=== PATIENT | male | born 1960 | race Caucasian/White ===

== ENCOUNTER 2017-02-14 05:17 | Day surgery (SDC) | payer BC, OTHER ==
[2017-02-13 14:39] VITALS: BMI 42.2
[2017-02-14] MEDS ORDERED: oxyCODONE HCL 5 MG TABLET PO PRN (14:34)
[2017-02-14] MEDS ORDERED: ONDANSETRON 4 MG/2 ML VIAL IVPUSH PRN (14:34)
[2017-02-14] MEDS ORDERED: LACTATED RINGERS SOLUTION 1,000 ML IV SCH (14:45)
[2017-02-14] MEDS ORDERED: ceFAZolin SODIUM 1 GM VIAL IVPB ONE (15:10)
--- NOTE | 2017-02-14 16:04 | OP ---
Operative Note - Note: Operative Date: 02/14/17 Pre-Operative Diagnosis: Hematuria Operation: cysto fulguration TUVP and bladder biosy Findings: Severe inf changes a with bulbous edema of the bladder, obs uropathy. Entire prostatic urethra showed inf changes and was bleeding. Post-Operative Diagnosis: Same as Pre-op Anesthesia: Spinal Drains & Tubes with Location: [address] Operative Report Dictated: Yes
[2017-02-14] MEDS ORDERED: ePHEDrine SULFATE 50 MG/1 ML AMPULE ONE (16:14)
[2017-02-14] MEDS ORDERED: SODIUM CHLORIDE 0.9% P/F 10 ML VIAL IJ ONE (16:15)
[2017-02-14 17:57] VITALS: TEMP 98.3
[2017-02-14 19:02] VITALS: BP 153/91; PULSE 67
--- NOTE | 2017-02-15 11:17 | OP ---
DATE OF OPERATION: 02/14/2017 SURGEON: Sylvia Queen MD ANESTHESIA: Spinal. PREOPERATIVE DIAGNOSIS: Gross hematuria and obstructive uropathy. POSTOPERATIVE DIAGNOSIS: Gross hematuria and obstructive uropathy, possible bladder lesions. PROCEDURE: Cystoscopy, transurethral vaporization of the prostate, and biopsy of bladder neck. FINDINGS: Urethra normal. Bladder neck shows some obstructive uropathy with evidence of enlarged prostate length. Severe inflammatory changes noted throughout the prostatic urethra. Multiple bulbous edema and are noted. Both ureteral orifices normally located with clear efflux. Two or three diverticulum noted in the trigone area. The anterior trigone was found to be filled with severe tortuous blood vessels and areas of inflammation. DESCRIPTION OF PROCEDURE: Patient in lithotomy position under anesthesia was prepped and draped in the usual manner. Using 26 Black resectoscope, resection of the bladder neck and the prostate carried out using plasma button. At the end, a good channel was noted. Also noted was severe bulbous edema which was fulgurated. Multiple bleeding points were electrocoagulated. There were areas of changes in the mucocele of the bladder. Biopsy was taken. The tissues were so friable they bleed, so a good biopsy could not be taken. So, it was decided to fulgurate the area and repeat the biopsy in 6 weeks. We will repeat the cystoscopy in 6 weeks to be followed up. SYLVIA QUEEN M.D. [id number]
--- NOTE | 2017-02-16 16:54 | PATH ---
Surgical Pathology Report Patient Name: [facility]. Rec. #: [id number] /Age/Gender: 1960 (Age: 56) / M Account: [id number] Location: [facility] Taken: 02/14/2017 Received: 02/15/2017 Reported: 02/16/2017 Physicians: Sylvia Queen M.D. Specimen(s) Received BLADDER NECK BIOPSY Clinical History BPH, hemorrhagic cystitis Final Diagnosis BLADDER NECK, BIOPSY: BENIGN POLYPOID CYSTITIS. Electronically Signed Angelic Kaur M.D. Gross Description Received in formalin, labeled "bladder neck biopsy" are 2 cruz, irregular portions of soft tissue measuring 0.2 and 0.5 cm. in greatest dimension. The specimens are submitted in toto in one cassette. 02/15/201702/15/2017
== END 2017-02-14 19:04 | disposition home or self-care (01) ==
LOC: JASU-SURG 05:17
PROVIDERS: ATTEND Urology
PROC: 0VT08ZZ Resection of Prostate, Via Natural or Artificial Opening Endoscopic (ICD-10-PCS; principal; 2017-02-14 14:00)
PROC: 0TBC8ZX Excision of Bladder Neck, Via Natural or Artificial Opening Endoscopic, Diagnostic (ICD-10-PCS; 2017-02-14 14:00)
DX: N40.1 Benign prostatic hyperplasia with lower urinary tract symptoms (principal); N30.81 Other cystitis with hematuria; N13.8 Other obstructive and reflux uropathy
CPT/HCPCS: 88305-TC; 94760

== ENCOUNTER 2017-02-15 06:57 | Emergency (ER) | payer BC, OTHER ==
[2017-02-15 07:19] VITALS: BP 166/99; PULSE 97; TEMP 98.2; BMI 42.6
--- NOTE | 2017-02-15 07:27 | PDOC ---
History of Present Illness - General History Source: Patient Exam Limitations: No Limitations - History of Present Illness Initial Comments: 02/15/17 08:32 The patient is a 56-year-old male, with a significant past medical history of HTN, Asthma, cholelithiasis, who presents to the ED s/p cysto/TUVP. The patient is now complaining of urinary retention and bleeding from catheter today. Pt is experiencing pain and has been unable to pass urine through the catheter. He reports draining his catheter before going to bed last night. Pt takes 25 mg of aspirin daily. Denies any nausea, vomiting, diarrhea. Denies having any other symptoms. Urologist: Dr. Queen <Dinora Guillen - Last Filed: 02/15/17 08:37> <Cinthia Lehman - Last Filed: 02/15/17 12:22> - General Chief Complaint: Urinary Catheter Problem Stated Complaint: CATHATER NOT WORKING Time Seen by Provider: 02/15/17 07:19 Past History <Dinora Guillen - Last Filed: 02/15/17 08:37> - Past Medical History Anemia: No Asthma: Yes Cancer: No Cardiac Disorders: No CVA: No COPD: No CHF: No Dementia: No Diabetes: No GI Disorders: No Disorders: No HTN: Yes Hypercholesterolemia: Yes Liver Disease: No Seizures: No Thyroid Disease: No Other medical history: enlarged prostate - Surgical History Cholecystectomy: Yes - Suicide/Smoking/Psychosocial Hx Smoking History: Never smoked Have you smoked in the past 12 months: No Hx Alcohol Use: No Drug/Substance Use Hx: No Substance Use Type: None Hx Substance Use Treatment: No <Cinthia Lehman - Last Filed: 02/15/17 12:22> - Past Medical History Allergies/Adverse Reactions: Allergies Allergy/AdvReac Type Severity Reaction Status Date / Time No Known Drug Allergies Allergy Unknown Verified 02/15/17 07:13 CONDIMENT Allergy Intermediate Swelling Uncoded 02/15/17 07:13 SPICY FOOD Allergy Uncoded 02/15/17 07:13 Home Medications: Ambulatory Orders Losartan/Hydrochlorothiazide [Losartan-Hctz 50-12.5 mg Tab] 1 each PO DAILY Aspirin [ASA -] 325 mg PO DAILY 02/13/17 Metoprolol Succinate [Toprol Xl] 50 mg PO BID 02/13/17 Review of Systems - Review of Systems Able to Perform ROS?: Yes Comments:: 02/15/17 08:33 GENERAL/CONSTITUTIONAL: No fever or chills. No weakness. HEAD, EYES, EARS, NOSE AND THROAT: No change in vision. No ear pain or discharge. No sore throat. CARDIOVASCULAR: No chest pain or shortness of breath. RESPIRATORY: No cough, wheezing, or hemoptysis. GASTROINTESTINAL: (+)suprapubic pain. No nausea, vomiting, diarrhea or constipation. GENITOURINARY: (+)urinary retention. No dysuria, frequency. MUSCULOSKELETAL: No joint or muscle swelling or pain. No neck or back pain. SKIN: No rash NEUROLOGIC: No headache, vertigo, loss of consciousness, or change in strength/ sensation. ENDOCRINE: No increased thirst. No abnormal weight change. HEMATOLOGIC/LYMPHATIC: No anemia, easy bleeding, or history of blood clots. ALLERGIC/IMMUNOLOGIC: No hives or skin allergy. <Dinora Guillen - Last Filed: 02/15/17 08:37> *Physical Exam - Vital Signs Last Vital Signs Temp Pulse Resp BP Pulse Ox 98.2 F 97 H 20 166/99 98 02/15/17 07:09 02/15/17 07:09 02/15/17 07:09 02/15/17 07:09 02/15/17 07:09 - Physical Exam Comments: 02/15/17 08:34 GENERAL: Awake, alert, and fully oriented, in no acute distress HEAD: No signs of trauma EYES: PERRLA, EOMI, sclera anicteric, conjunctiva clear ENT: Auricles normal inspection, hearing grossly normal, nares patent, oropharynx clear without exudates. Moist mucosa NECK: Normal ROM, supple, no lymphadenopathy, JVD, or masses LUNGS: Breath sounds equal, clear to auscultation bilaterally. No wheezes, and no crackles HEART: Regular rate and rhythm, normal S1 and S2, no murmurs, rubs or gallops ABDOMEN: (+)Bladder is distended. Soft, nontender, normoactive bowel sounds. No guarding, no rebound. No masses GENITOURINARY: (+)laci blood noted (30 cc in stewart bag), small amount of blood coming out of the meatus of the penis. EXTREMITIES: Normal range of motion, no edema. No clubbing or cyanosis. No cords, erythema, or tenderness NEUROLOGICAL: Cranial nerves II through XII grossly intact. Normal speech, normal gait SKIN: Warm, Dry, normal turgor, no rashes or lesions noted <Dinora Guillen - Last Filed: 02/15/17 08:37> - Vital Signs Last Vital Signs Temp Pulse Resp BP Pulse Ox 98.2 F 97 H 20 166/99 98 02/15/17 07:09 02/15/17 07:09 02/15/17 07:09 02/15/17 07:09 02/15/17 07:09 <Cinthia Lehman - Last Filed: 02/15/17 12:22> ED Treatment Course - LABORATORY CBC & Chemistry Diagram: 02/15/17 08:40 02/15/17 08:40 <Cinthia Lehman - Last Filed: 02/15/17 12:22> Medical Decision Making - Medical Decision Making 02/15/17 07:37 Dr. Mcdaniel was paged and notified via phone service. <Dinora Guillen - Last Filed: 02/15/17 08:37> - Medical Decision Making 02/15/17 07:34 a/p: 56yo male s/p cysto/TUVP yesterday with Urology now with urinary retention and catheter bleeding -will check labs -ivf hydration -pain control -call placed to Dr. Queen to discuss catheter care since placed after prostate and bladder bx 02/15/17 09:10 Dr. Horner at the bedside - bag was clamped incorrectly. now with urine output that is bloody - requests CBI and will come down and evaluate again. Pt feeling much better after releasing Urine. with cbi - running - pink tinged, no clots, clearing from dark red blood 02/15/17 10:[address] Nice who will be back at noon to re-eval: continue CBI until then 02/15/17 12:20 pt has been re-eval by urology - stable for d/c to home d/c home with leg bag <Cinthia Lehman - Last Filed: 02/15/17 12:22> *DC/Admit/Observation/Transfer - Attestations Scribe Attestion: 02/15/17 08:36 Documentation prepared by Dinora Guillen, acting as medical records tech for Cinthia Lehman DO, MD. <Dinora Guillen - Last Filed: 02/15/17 08:37> - Discharge Dispostion Admit: No - Attestations Physician Attestion: 02/15/17 12:22 I, Dr. Cinthia Lehman DO, attest that this document has been prepared under my direction and personally reviewed by me in its entirety. I further attest, that it accurately reflects all work, treatment, procedures and medical decision -making performed by me. <Cinthia Lehman - Last Filed: 02/15/17 12:22> Diagnosis at time of Disposition: S/P TURP, Hematuria, Acute urinary retention - Discharge Dispostion Disposition: HOME Condition at time of disposition: Stable - Referrals Referrals: Alejandro Jolly MD [Primary Care Provider] - Sylvia Queen MD [Staff Physician] - - Patient Instructions Printed Discharge Instructions: DI for Transurethral Resection of the Prostate , DI for Hematuria Additional Instructions: Please follow up with urology as scheduled. Please make a follow up appointment with your PMD. Please return to the ED with any further concerns. Please take all meds as prescribed. - Post Discharge Activity
[2017-02-15] MEDS ORDERED: morphine CARPU-JECT 2 MG/1 ML DISP.SYRIN IVPUSH ONE (07:36)
[2017-02-15 08:53] LABS: BASO % 0.5 % (0-2.0); EOS % 0.1 % (0-4.5); MCHC 32.9 g/dl (32.0-35.9); MEAN CELL VOLUME 88.2 fl (80-96); MEAN PLT VOLUME 9.4 fl (7.5-11.1); NEUT % 80.6 % (42.8-82.8); RDW 14.7 % (11.9-15.9); WHITE BLOOD COUNT 13.5 K/mm3 (4.0-10.0)
[2017-02-15 09:04] LABS: INR 1.04 (0.82-1.09); PROTHROMBIN TIME (PATIENT) 11.8 SEC (9.98-11.88)
[2017-02-15 09:07] LABS: ACTIVATED PTT 29.1 SECONDS (26.9-34.4)
[2017-02-15 09:26] LABS: ALBUMIN 3.5 g/dl (3.4-5.0); ANION GAP 10 (8-16); CALCIUM 8.6 mg/dL (8.5-10.1); CO2 24 mmol/L (21-32); GLUCOSE,RANDOM 145 mg/dL (74-106); SGOT/AST 39 U/L (15-37); SGPT/ALT 54 U/L (12-78)
[2017-02-15 09:27] LABS: ALK PHOS 93 U/L (45-117); BILIRUBIN,TOTAL 0.8 mg/dL (0.2-1.0); TOT PROT 6.7 g/dl (6.4-8.2)
[2017-02-15 12:07] LABS: PLATELET COMMENTS PRESENT
== END 2017-02-15 12:51 | disposition home or self-care (01) ==
LOC: JER 06:57
DX: Z98.890 Other specified postprocedural states (principal); R33.9 Retention of urine, unspecified; R31.9 Hematuria, unspecified; I10 Essential (primary) hypertension; J45.909 Unspecified asthma, uncomplicated
CPT/HCPCS: 36415; 80053; 85025; 85610; 85730; 99282-25

== ENCOUNTER 2017-02-15 22:55 | Inpatient (IN) | payer BC, OTHER ==
[2017-02-15] MEDS ORDERED: ACETAMINOPHEN 325 MG TABLET (FP) PO ONE (23:49)
[2017-02-16] MEDS ORDERED: ACETAMINOPHEN 325 MG TABLET (FP) ONE
[2017-02-16 00:44] LABS: BASO % 0.8 % (0-2.0); EOS % 1.5 % (0-4.5); HEMATOCRIT 41.3 % (35.4-49); HEMOGLOBIN 13.9 GM/dL (11.7-16.9); LYMPH % 11.7 % (8-40); MCH 29.5 pg (25.7-33.7); MCHC 33.6 g/dl (32.0-35.9); MEAN CELL VOLUME 87.7 fl (80-96); MEAN PLT VOLUME 10.2 fl (7.5-11.1); MONO % 6.4 % (3.8-10.2); NEUT % 79.6 % (42.8-82.8); PLATELET COUNT 158 K/MM3 (134-434); RBC 4.71 M/mm3 (4.00-5.60); RDW 14.9 % (11.9-15.9); WHITE BLOOD COUNT 10.6 K/mm3 (4.0-10.0)
[2017-02-16 00:56] LABS: INR 1.07 (0.82-1.09); PROTHROMBIN TIME (PATIENT) 12.1 SEC (9.98-11.88)
[2017-02-16 00:59] LABS: ACTIVATED PTT 28.3 SECONDS (26.9-34.4)
[2017-02-16 01:06] LABS: ALBUMIN 3.4 g/dl (3.4-5.0); ALK PHOS 88 U/L (45-117); ANION GAP 11 (8-16); BILIRUBIN,TOTAL 0.7 mg/dL (0.2-1.0); BLOOD UREA NITROGEN 17 mg/dL (7-18); CALCIUM 8.3 mg/dL (8.5-10.1); CHLORIDE 105 mmol/L (98-107); CO2 24 mmol/L (21-32); GLUCOSE,RANDOM 152 mg/dL (74-106); POTASSIUM 3.7 mmol/L (3.5-5.1); SGOT/AST 35 U/L (15-37); SGPT/ALT 51 U/L (12-78); SODIUM 140 mmol/L (136-145); TOT PROT 6.6 g/dl (6.4-8.2)
--- NOTE | 2017-02-16 01:34 | PDOC ---
History of Present Illness - General Chief Complaint: Pain Stated Complaint: PAIN Time Seen by Provider: 02/15/17 23:41 History Source: Patient - History of Present Illness Initial Comments: 02/16/17 01:35 The patient is a 56-year-old male, with a significant past medical history of HTN, Asthma, cholelithiasis, who presented to the ED s/p cysto/TUVP this morning with blockage and bleeding from the urinary catheter. The patient is now back with the complaint that his urinary catheter is full of laci blood. No clogging reported. Past History - Past Medical History Allergies/Adverse Reactions: Allergies Allergy/AdvReac Type Severity Reaction Status Date / Time No Known Drug Allergies Allergy Unknown Verified 02/15/17 07:13 CONDIMENT Allergy Intermediate Swelling Uncoded 02/15/17 07:13 SPICY FOOD Allergy Uncoded 02/15/17 07:13 Home Medications: Ambulatory Orders Losartan/Hydrochlorothiazide [Losartan-Hctz 50-12.5 mg Tab] 1 each PO DAILY Aspirin [ASA -] 325 mg PO DAILY 02/13/17 Metoprolol Succinate [Toprol Xl] 50 mg PO BID 02/13/17 Anemia: No Asthma: Yes Cancer: No Cardiac Disorders: No CVA: No COPD: No CHF: No Dementia: No Diabetes: No GI Disorders: No Disorders: No HTN: Yes Hypercholesterolemia: Yes Liver Disease: No Seizures: No Thyroid Disease: No - Surgical History Cholecystectomy: Yes - Suicide/Smoking/Psychosocial Hx Smoking History: Never smoked Have you smoked in the past 12 months: No Information on smoking cessation initiated: No Hx Alcohol Use: No Drug/Substance Use Hx: No Substance Use Type: None Hx Substance Use Treatment: No Review of Systems - Review of Systems Able to Perform ROS?: Yes Constitutional: No: Symptoms Reported HEENTM: No: Symptoms Reported Respiratory: No: Symptoms reported Cardiac (ROS): No: Symptoms Reported ABD/GI: No: Symptoms Reported : Yes: See HPI, Hematuria Musculoskeletal: No: Symptoms Reported Integumentary: No: Symptoms Reported Neurological: No: Symptoms reported All Other Systems: Reviewed and Negative *Physical Exam - Vital Signs Last Vital Signs Temp Pulse Resp BP Pulse Ox 97.9 F 82 19 158/102 97 02/15/17 23:16 02/15/17 23:16 02/15/17 23:16 02/15/17 23:16 02/15/17 23:16 - Physical Exam General Appearance: Yes: Nourished, Appropriately Dressed. No: Apparent Distress HEENT: positive: EOMI, ASTRID, Normal ENT Inspection Neck: positive: Trachea midline. negative: Tender Respiratory/Chest: positive: Lungs Clear, Normal Breath Sounds. negative: Chest Tender Cardiovascular: positive: Regular Rhythm, Regular Rate, S1, S2 Gastrointestinal/Abdominal: positive: Normal Bowel Sounds, Flat, Soft. negative : Tender Integumentary: positive: Normal Color, Dry, Warm Neurologic: positive: batter scaler II-XII NML intact, Fully Oriented, Alert, Normal Mood/ Affect ED Treatment Course - LABORATORY CBC & Chemistry Diagram: 02/16/17 00:37 02/16/17 00:37 - ADDITIONAL ORDERS Additional order review: Laboratory Results 02/16/17 02/16/17 00:37 00:37 PT with INR 12.10 H INR 1.07 PTT (Actin FS) 28.3 Sodium 140 Potassium 3.7 Chloride 105 Carbon Dioxide 24 Anion Gap 11 BUN 17 Creatinine 1.0 Creat Clearance w eGFR > 60 Random Glucose 152 H Calcium 8.3 L Total Bilirubin 0.7 AST 35 ALT 51 Alkaline Phosphatase 88 Total Protein 6.6 Albumin 3.4 02/16/17 00:37 RBC 4.71 MCV 87.7 MCHC 33.6 RDW 14.9 MPV 10.2 Neutrophils % 79.6 Lymphocytes % 11.7 Monocytes % 6.4 Eosinophils % 1.5 D Basophils % 0.8 - Medications Given in the ED: ED Medications Discontinued Medications Generic Name Dose Route Start Last Admin Trade Name Freq PRN Reason Stop Dose Admin Acetaminophen 650 mg 02/15/17 23:49 02/15/17 23:59 Tylenol - PO 02/15/17 23:50 650 mg ONCE ONE Administration Medical Decision Making - Medical Decision Making 02/16/17 01:44 The patient is a 56-year-old male, with a significant past medical history of HTN, Asthma, cholelithiasis,s/p cysto/TUVP presenting on second visit today for hematuria. Patient lab drawn, to be admitted to hospitalist. Spoke to Dr. Mcdaniel who recommended to flush the catheter and admit to med-surg where he will follow up with the patient tomorrow. 02/16/17 02:14 Spoke to hospitalist Chinyere Rosales who will see the patient. 02/16/17 03:03 *DC/Admit/Observation/Transfer Diagnosis at time of Disposition: Hematuria, Complication of Toml[place] catheter - Discharge Dispostion Admit: Yes - Referrals Referrals: Duane Mcdaniel MD [Staff Physician] - - Patient Instructions - Post Discharge Activity
--- NOTE | 2017-02-16 02:09 | PDOC ---
Attending Attestation - Resident Resident Name: Chace Wallace - ED Attending Attestation I have performed the following: I have examined & evaluated the patient, The case was reviewed & discussed with the resident, I agree w/resident's findings & plan, Exceptions are as noted - Physicial Exam PE: 02/16/17 02:06 *Physical Exam General Appearance: Yes: Appropriately Dressed. No: Apparent Distress, Intoxicated HEENT: positive: EOMI, ASTRID, Normal ENT Inspection, Normal Voice, TMs Normal, Pharynx Normal. negative: Pale Conjunctivae, Photophobia, Scleral Icterus (R), Scleral Icterus (L) Neck: positive: Trachea midline, Normal Thyroid, Supple. negative: Tender, Rigid, Carotid bruit, Stridor, Lymphadenopathy (R), Lymphadenopathy (L), Thyromegaly Respiratory/Chest: positive: Lungs Clear, Normal Breath Sounds. negative: Chest Tender, Respiratory Distress, Accessory Muscle Use, Labored Respiration, RES, Crackles, Rales, Rhonchi, Stridor, Wheezing, Dullness Cardiovascular: positive: Regular Rhythm, Regular Rate, S1, S2. negative: Edema , JVD, Murmur, Bradycardia, Tachycardia Vascular Pulses: Dorsalis-Pedis (R): 2+, Doralis-Pedis (L): 2+ Gastrointestinal/Abdominal: positive: Normal Bowel Sounds, Flat, Soft. negative : Tender, Organomegaly, Pulsatile Mass, Increased Bowel Sounds, Decreased BS, Distended, Guarding, Rebound, Hernia, Hepatomegaly, Spleenomegaly Lymphatic: negative: Adenopathy, Tenderness Musculoskeletal: positive: Normal Inspection. negative: CVA Tenderness, Decreased Range of Motion pt with stewart catheter in place. stewart bag showing blood in urine Extremity: positive: Normal Capillary Refill, Normal Inspection, Normal Range of Motion, Pelvis Stable. negative: Tender, Pedal Edema, Swelling, Erythema Integumentary: positive: Normal Color, Dry, Warm. negative: Cyanotic, Erythema , Jaundice, Rash Neurologic: positive: remote sensing technologist II-XII NML intact, Fully Oriented, Alert, Normal Mood/ Affect, Motor Strength 5/5. negative: EOM Palsy, Facial Droop, Sensory Deficit <Chris Rivas - Last Filed: 02/16/17 02:06> - HPI HPI: 02/16/17 02:12 The patient is a 56-year-old male, with a significant past medical history of HTN, Asthma, cholelithiasis, who returns to the ED s/p cysto/TUVP for continued bleeding from catheter after being discharged for clogged catheter earlier today. The patient reportedly takes 25 mg of aspirin daily. The patient also reports a spinning headache, but denies room spinning. Denies any nausea, vomiting, diarrhea. Denies having any other symptoms. Urologist: Dr. Queen - Medical Decision Making 02/16/17 02:12 Dr. Duane Mcdaniel, Urology on-call for Dr. Queen, was called and the patient' s case was discussed. Will admit to [facility] service when UA is resulted. <Charissa Campos - Last Filed: 02/16/17 02:13>
[2017-02-16 02:35] LABS: PH,URINE 6.5 (5.0-8.0); URINE APPEARANCE TURBID; URINE BILIRUBIN NEGATIVE (NEGATIVE); URINE BLOOD 3+ (NEGATIVE); URINE GLUCOSE (UA) NEGATIVE (NEGATIVE); URINE KETONE 1+ (NEGATIVE); URINE UROBILINOGEN 0.2 mg/dL (0.2-1.0)
[2017-02-16 02:37] LABS: URINE LEUK ESTERASE TRACE (NEGATIVE); URINE NITRITE POSITIVE (NEGATIVE); URINE PROTEIN 3+ (NEGATIVE)
[2017-02-16 02:38] LABS: URINE COLOR RED
[2017-02-16] MEDS ORDERED: morphine CARPU-JECT 4 MG/1 ML DISP.SYRIN IVPUSH ONE (03:57)
--- NOTE | 2017-02-16 04:57 | HP ---
CHIEF COMPLAINT: hematuria PCP: Bret HISTORY OF PRESENT ILLNESS: This is a 56 year old male with a significant past medical history of enlarged prostate who presented to the ED with hematuria in Stewart bag. Pt is s/p cystoscopy, bladder biopsy and TUVP on 02/14. He was d/c home with a stewart catheter in place. On 02/15 he noted no urine output in bag and abdominal discomfort. He presented to the ED. He was evaluated by urology in the ED and started on CBI which he tolerated and was DC home after irrigation. He again noted no urine output and thus presented to the ED for another visit late last night. He reports that when he got here he did have urine output but noted it to be very bloody. He reports he has been producing urine since he got here late last night. Upon exam his only complaint is a headache. ER course was notable for: (1) laci bloody urine in leg bag (2) Hgb 13.9 Recent Travel: lives in [place] and splits his time between here and there PAST MEDICAL HISTORY: HTN, asthma, enlarged prostate PAST SURGICAL HISTORY: cholecystectomy Social History: Smoking: pt denies Alcohol: occ beer Drugs: pt denies Family History: mother alive with OA, DM, HTN, CVA x 2, first at 76 father unknown history Allergies No Known Drug Allergies Allergy (Unknown, Verified 02/15/17 07:13) CONDIMENT Allergy (Intermediate, Uncoded 02/15/17 07:13) Swelling FACE SPICY FOOD Allergy (Uncoded 02/15/17 07:13) HOME MEDICATIONS: 3 Medication Instructions Recorded Losartan/Hydrochlorothiazide 1 each PO DAILY 07/14/15 [Losartan-Hctz 50-12.5 mg Tab] Aspirin [ASA -] 325 mg PO DAILY 02/13/17 Metoprolol Succinate [Toprol Xl] 50 mg PO BID 02/13/17 REVIEW OF SYSTEMS CONSTITUTIONAL: Absent: fever, chills, diaphoresis, generalized weakness, malaise, loss of appetite, weight change HEENT: Absent: rhinorrhea, nasal congestion, throat pain, throat swelling, difficulty swallowing, mouth swelling, ear pain, eye pain, visual changes CARDIOVASCULAR: Absent: chest pain, syncope, palpitations, irregular heart rate, lightheadedness , peripheral edema RESPIRATORY: Absent: cough, shortness of breath, dyspnea with exertion, orthopnea, wheezing, stridor, hemoptysis GASTROINTESTINAL: Absent: abdominal pain, abdominal distension, nausea, vomiting, diarrhea, constipation, melena, hematochezia GENITOURINARY: Present: hematuria Absent: dysuria, frequency, urgency, hesitancy, flank pain, genital pain MUSCULOSKELETAL: Absent: myalgia, arthralgia, joint swelling, back pain, neck pain SKIN: Absent: rash, itching, pallor HEMATOLOGIC/IMMUNOLOGIC: Absent: easy bleeding, easy bruising, lymphadenopathy, frequent infections ENDOCRINE: Absent: unexplained weight gain, unexplained weight loss, heat intolerance, cold intolerance NEUROLOGIC: Absent: headache, focal weakness or paresthesias, dizziness, unsteady gait, seizure, mental status changes, bladder or bowel incontinence PSYCHIATRIC: Absent: anxiety, depression, suicidal or homicidal ideation, hallucinations. PHYSICAL EXAMINATION Vital Signs - 24 hr 3 02/15/17 23:16 Temperature 97.9 F Pulse Rate 82 Respiratory 19 Rate Blood Pressure 158/102 O2 Sat by Pulse 97 Oximetry (%) GENERAL: Awake, alert, and fully oriented, in no acute distress. HEAD: Normal with no signs of trauma. EYES: Pupils equal, round and reactive to light, extraocular movements intact, sclera anicteric, conjunctiva clear. No lid lag. EARS, NOSE, THROAT: Ears normal, nares patent, oropharynx clear without exudates. Moist mucous membranes. NECK: Normal range of motion, supple without lymphadenopathy, JVD, or masses. LUNGS: Breath sounds equal, clear to auscultation bilaterally. No wheezes, and no crackles. No accessory muscle use. HEART: Regular rate and rhythm, normal S1 and S2 without murmur, rub or gallop. ABDOMEN: Soft, nontender, not distended, normoactive bowel sounds, no guarding, no rebound, no masses. No hepatomegaly or splenomegaly. leg bag noted with laci hematuria MUSCULOSKELETAL: Normal range of motion at all joints. No bony deformities or tenderness. No CVA tenderness. UPPER EXTREMITIES: 2+ pulses, warm, well-perfused. No cyanosis. No clubbing. No peripheral edema. LOWER EXTREMITIES: 2+ pulses, warm, well-perfused. No calf tenderness. No peripheral edema. NEUROLOGICAL: Cranial nerves II-XII intact. Normal speech. Normal gait. PSYCHIATRIC: Cooperative. Good eye contact. Appropriate mood and affect. SKIN: Warm, dry, normal turgor, no rashes or lesions noted, normal capillary refill. Laboratory Results - last 24 hr 3 02/16/17 02/16/17 02/16/17 00:37 00:37 00:37 WBC 10.6 H RBC 4.71 Hgb 13.9 Hct 41.3 MCV 87.7 MCH 29.5 MCHC 33.6 RDW 14.9 Plt Count 158 MPV 10.2 Neutrophils % 79.6 Lymphocytes % 11.7 Monocytes % 6.4 Eosinophils % 1.5 D Basophils % 0.8 PT with INR 12.10 H INR 1.07 PTT (Actin FS) 28.3 Sodium 140 Potassium 3.7 Chloride 105 Carbon Dioxide 24 Anion Gap 11 BUN 17 Creatinine 1.0 Creat Clearance w eGFR > 60 Random Glucose 152 H Calcium 8.3 L Total Bilirubin 0.7 AST 35 ALT 51 Alkaline Phosphatase 88 Total Protein 6.6 Albumin 3.4 Urine Color Urine Appearance Urine pH Ur Specific Carter Urine Protein Urine Glucose (UA) Urine Ketones Urine Blood Urine Nitrite Urine Bilirubin Urine Urobilinogen Urine WBC (Auto) Urine RBC (Auto) Blood Type Antibody Screen 3 Urine Color Red 02/16/17 02:00 Urine Appearance Turbid 02/16/17 02:00 Urine pH 6.5 (5.0-8.0) 02/16/17 02:00 Ur Specific Carter >= 1.030 (1.001-1.035) 02/16/17 02:00 Urine Protein 3+ (NEGATIVE) H D 02/16/17 02:00 Urine Glucose (UA) Negative (NEGATIVE) 02/16/17 02:00 Urine Ketones 1+ (NEGATIVE) H 02/16/17 02:00 Urine Blood 3+ (NEGATIVE) H 02/16/17 02:00 Urine Nitrite Positive (NEGATIVE) 02/16/17 02:00 Urine Bilirubin Negative (NEGATIVE) 02/16/17 02:00 ASSESSMENT/PLAN: 56yM with PMH HTN, asthma, enlarged prostate presented to the ED for the second time in less than 24h for hematuria and blocked stewart catheter. Hematuria s/p cystoscopy, bladder neck biopsy and TUVP - cont stewart - irrigate PRN - urology consult Hypertension - cont home medications DVT PPX - deferred as anticipated LOS less than 48h FEN - tolerating po - BMP alice - low sodium diet dispo: Pt currently requires inpatient observation for management of his emergent condition. Visit type - Emergency Visit Emergency Visit: Yes ED Registration Date: 02/15/17 Care time: The patient presented to the Emergency Department on the above date and was hospitalized for further evaluation of their emergent condition. - New Patient This patient is new to me today: Yes Date on this admission: 02/16/17 - Critical Care Critical Care patient: No
[2017-02-16] MEDS ORDERED: morphine CARPU-JECT 8 MG/1 ML DISP.SYRIN ONE (06:46)
[2017-02-16] MEDS: LOSARTAN POTASSIUM 50 MG TABLET (FP) PO SCH (09:24)
[2017-02-16] MEDS: HYDROCHLOROTHIAZIDE 12.5 MG CAPSULE (FP) PO SCH (09:24)
[2017-02-16] MEDS: METOPROLOL SUCCINATE 50 MG TAB.SR.24H (FP) PO SCH ×2 (09:25→21:26)
[2017-02-16] MEDS ORDERED: LOSARTAN 50MG/HCTZ 12.5MG 1 TAB (FP) PO SCH (10:00)
--- NOTE | 2017-02-16 12:43 | EKG ---
Test Reason : Blood Pressure : / mmHG Vent. Rate : 064 BPM Atrial Rate : 064 BPM P-R Int : 158 ms QRS Dur : 090 ms QT Int : 456 ms P-R-T Axes : 054 -20 032 degrees QTc Int : 470 ms NORMAL SINUS RHYTHM POSSIBLE LEFT ATRIAL ENLARGEMENT LEFT VENTRICULAR HYPERTROPHY ABNORMAL ECG WHEN COMPARED WITH ECG OF 15-JUL-2015 15:47, NO SIGNIFICANT CHANGE WAS FOUND Confirmed by ADITI PARRA MD ([id number]) on 02/16/2017 12:43:18 PM Referred By: Confirmed By:AIDTI PARRA MD
[2017-02-16] MEDS ORDERED: ONDANSETRON 4 MG/2 ML VIAL IVPUSH PRN (13:22)
[2017-02-16 16:27] VITALS: BMI 43.8
[2017-02-16] MEDS ORDERED: morphine SULFATE 4 MG/ML VIAL IVPUSH PRN (17:04)
[2017-02-16] MEDS: oxyCODONE HCL 5 MG TABLET PO PRN (18:27)
--- NOTE | 2017-02-16 22:42 | HOSP ---
Physical Examination Vital Signs: Vital Signs Temperature 98.3 F 02/16/17 21:23 Pulse Rate 66 02/16/17 18:00 Respiratory Rate 20 02/16/17 21:23 Blood Pressure 142/79 02/16/17 21:23 O2 Sat by Pulse Oximetry (%) 98 02/16/17 20:00 Labs: CBC, BMP 02/16/17 00:37 02/16/17 00:37 Hospitalist Encounter Assessment: called by RN who reports that pt was seen by urology Colette Mcdaniel who told the patient he needs CBI. But did not put the order in. Nurse unable to reach Dr. Mcdaniel. Tomlinson draining laci hematuria slowly. Will order CBI.
[2017-02-17] MEDS: oxyCODONE HCL 5 MG TABLET PO PRN ×4 (01:23→22:17)
[2017-02-17 09:00] LABS: BASO % 0.8 % (0-2.0); EOS % 7.3 % (0-4.5); HEMATOCRIT 41.2 % (35.4-49); HEMOGLOBIN 13.4 GM/dL (11.7-16.9); LYMPH % 18.2 % (8-40); MCH 28.7 pg (25.7-33.7); MCHC 32.6 g/dl (32.0-35.9); MEAN PLT VOLUME 9.9 fl (7.5-11.1); MONO % 9.3 % (3.8-10.2); NEUT % 64.4 % (42.8-82.8); RBC 4.69 M/mm3 (4.00-5.60); RDW 14.9 % (11.9-15.9); WHITE BLOOD COUNT 9.5 K/mm3 (4.0-10.0)
[2017-02-17 09:30] LABS: CHLORIDE 103 mmol/L (98-107); POTASSIUM 3.7 mmol/L (3.5-5.1); SODIUM 138 mmol/L (136-145)
[2017-02-17 09:36] LABS: ALBUMIN 3.2 g/dl (3.4-5.0); ALK PHOS 81 U/L (45-117); ANION GAP 6 (8-16); BILIRUBIN,TOTAL 0.9 mg/dL (0.2-1.0); BLOOD UREA NITROGEN 20 mg/dL (7-18); CALCIUM 8.6 mg/dL (8.5-10.1); CO2 29 mmol/L (21-32); CREATININE 0.9 mg/dL (0.7-1.3); GLUCOSE,RANDOM 106 mg/dL (74-106); SGOT/AST 60 U/L (15-37); SGPT/ALT 64 U/L (12-78); TOT PROT 6.1 g/dl (6.4-8.2)
--- NOTE | 2017-02-17 10:29 | PN ---
Progress Note (short form) - Note Progress Note: patient seen and examined in his room hematuria CBI in progress denies pain Vital Signs Temp 98.3 F 02/17/17 10:14 Pulse 68 02/17/17 10:14 Resp 18 02/17/17 10:14 BP 129/70 02/17/17 10:14 Pulse Ox 98 02/17/17 04:00 Intake & Output 02/16/17 02/16/17 02/17/17 11:59 23:59 11:59 Intake Total 3000 6000 Output Total 750 1900 8750 Balance -750 1100 -2750 Weight 323 lb Intake: CBI Intake 3000 6000 Output: Urine 450 1500 8750 Stewart 450 1500 8750 Void 0 Emesis 300 400 Other: Voiding Method Indwelling Catheter Indwelling Catheter Indwelling Catheter Height 6 ft Body Mass Index (BMI) 43.8 Weight Measurement Method Estimated by Patient Abnormal Lab Results 02/16/17 02/16/17 02/17/17 02:00 08:00 08:00 Absolute Neuts (auto) 6.1 L Absolute Lymphs (auto) 1.7 L Absolute Monos (auto) 0.9 L Eosinophils % 7.3 H D Anion Gap 6 L BUN 20 H AST 60 H D Total Protein 6.1 L Albumin 3.2 L Ur Leukocyte Esterase 3+ H Active Medications Docusate Sodium (Colace -) 100 mg PO BID PRN PRN Reason: CONSTIPATION Hydrochlorothiazide (Hctz -) 12.5 mg PO DAILY [facility] Last Admin: 02/16/17 09:24 Dose: 12.5 mg Losartan Potassium (Cozaar -) 50 mg PO DAILY [facility] Last Admin: 02/16/17 09:24 Dose: 50 mg Metoprolol Succinate (Toprol Xl -) 50 mg PO BID [facility] Last Admin: 02/16/17 21:26 Dose: 50 mg Ondansetron HCl (Zofran Injection) 4 mg IVPUSH Q6H PRN PRN Reason: NAUSEA Oxycodone HCl (Roxicodone -) 5 mg PO Q4H PRN PRN Reason: PAIN Last Admin: 02/17/17 01:23 Dose: 5 mg N-alert, oriented cvs-s1s2 lungs-clear abd- soft, nt, nd stewart, CBI le- NO EDEMA a/p Hematuria status post cysto and bladder neck biopsy and TUVP-02/14 HTN -Continue stewart, CBI -Urology evaluation -Irrigate Stewart PRN -BP controlled with meds DVT- ppx- early ambulation no chemical prophylaxis due to hematuria
[2017-02-17 12:02] LABS: PLATELET ESTIMATE ADEQUATE
[2017-02-17] MEDS: DOCUSATE SODIUM 100 MG CAPSULE (FP) PO PRN (12:33)
[2017-02-17] MEDS: HYDROCHLOROTHIAZIDE 12.5 MG CAPSULE (FP) PO SCH (12:33)
[2017-02-17] MEDS: METOPROLOL SUCCINATE 50 MG TAB.SR.24H (FP) PO SCH ×2 (12:33→22:13)
[2017-02-17] MEDS: LOSARTAN POTASSIUM 50 MG TABLET (FP) PO SCH (12:33)
--- NOTE | 2017-02-17 13:10 | CONS ---
DATE OF CONSULTATION: DATE OF DICTATION: 02/17/2017 HISTORY OF PRESENT ILLNESS: The patient is a 56-year-old male who recently underwent a cystoscopy and bladder biopsy at our office. He presented to the emergency room with gross hematuria and suprapubic pain. The patient is admitted for continuous bladder irrigation. He does have a history of benign prostatic hypertrophy with lower urinary tract symptoms. He also had persistent microscopic hematuria and underwent a cystoscopy on February 14, 2017. A hyperemic trigonal lesion was noticed. This was biopsied then a Tomlinson catheter was placed. The patient developed gross hematuria on February 15, 2017 in his drainage bag and presented to the emergency room. Attempts at irrigation were successful but the patient returned later that night with another bout of clots in his bag and therefore was admitted. PAST MEDICAL HISTORY: He does have a history of high blood pressure, asthma, and BPH. PAST SURGICAL HISTORY: He underwent a cholecystectomy. SOCIAL HISTORY: He denies smoking. He drinks socially. FAMILY HISTORY: He does have a family history of lung cancer, diabetes, hypertension, and cerebrovascular accidents. ALLERGIES: The patient denies any allergies. CURRENT MEDICATIONS: He is on losartan. and hydrochlorothiazide at home. He also takes a baby aspirin as well as metoprolol succinate. PHYSICAL EXAMINATION: General: Reveals a well-developed adult male who is mildly obese. Abdomen: Globus but soft. There is no CVA tenderness. Genitalia: Atraumatic. Tomlinson is patent. Urine is burgundy colored. There are no clots. Extremities: Show full range of motion. IMPRESSION: The patient presently is afebrile. His BUN and creatinine are 10 over 1. His urine is grossly bloody. His liver enzymes are normal and his latest blood results reveal a white count of 9.5, hemoglobin/hematocrit 13.4/41.2 and random glucose is 106. The patient has been afebrile for the past 48 hours. We will recommend a urologic clearance for discharge and follow in the office. [facility] [id number]
--- NOTE | 2017-02-17 17:36 | PN ---
Progress Note (short form) - Note Progress Note: patient seen and examined with [employer]PON MANIFEST CLERK Natasha this morning. Patient feels comfortable On CBI now--was passing clots last night Afebrile Biopsy--- report reviewed--cystitis I had also discussed last night with patient and patient's . Vital Signs Temp 98.3 F 02/17/17 16:30 Pulse 66 02/17/17 16:30 Resp 20 02/17/17 16:30 BP 137/88 02/17/17 16:30 Pulse Ox 98 02/17/17 12:00 Intake & Output 02/16/17 02/17/17 02/17/17 23:59 11:59 23:59 Intake Total 3000 6000 6360 Output Total 1900 8750 7000 Balance 1100 -2750 -640 Weight 323 lb Intake: Oral 360 CBI Intake 3000 6000 6000 Output: Urine 1500 8750 7000 Stewart 1500 8750 7000 Emesis 400 Other: Voiding Method Indwelling Catheter Indwelling Catheter Indwelling Catheter Bowel Movement No Height 6 ft Body Mass Index (BMI) 43.8 Weight Measurement Method Estimated by Patient Active Medications Docusate Sodium (Colace -) 100 mg PO BID PRN PRN Reason: CONSTIPATION Last Admin: 02/17/17 12:33 Dose: 100 mg Hydrochlorothiazide (Hctz -) 12.5 mg PO DAILY [facility] Last Admin: 02/17/17 12:33 Dose: 12.5 mg Losartan Potassium (Cozaar -) 50 mg PO DAILY [facility] Last Admin: 02/17/17 12:33 Dose: 50 mg Metoprolol Succinate (Toprol Xl -) 50 mg PO BID [facility] Last Admin: 02/17/17 12:33 Dose: 50 mg Ondansetron HCl (Zofran Injection) 4 mg IVPUSH Q6H PRN PRN Reason: NAUSEA Oxycodone HCl (Roxicodone -) 5 mg PO Q4H PRN PRN Reason: PAIN Last Admin: 02/17/17 12:48 Dose: 5 mg CBC, BMP 02/16/17 08:00 02/17/17 08:00 Physical N-alert, oriented cvs-s1s2 lungs-clear abd- soft, nt, nd stewart, CBI le- NO EDEMA a/p Hematuria status post cysto and bladder neck biopsy and TUVP-02/14 HTN -Continue stewart, CBI -Urology to follow -Irrigate Stewart PRN -BP controlled with meds DVT- ppx- early ambulation Will follow
[2017-02-17 19:30] LABS: HEMATOCRIT 41.2 % (35.4-49); HEMOGLOBIN 13.5 GM/dL (11.7-16.9); MCH 28.9 pg (25.7-33.7); MCHC 32.7 g/dl (32.0-35.9); MEAN CELL VOLUME 88.3 fl (80-96); MEAN PLT VOLUME 9.4 fl (7.5-11.1); RBC 4.67 M/mm3 (4.00-5.60); RDW 15.2 % (11.9-15.9); WHITE BLOOD COUNT 8.8 K/mm3 (4.0-10.0)
[2017-02-17] MEDS ORDERED: diphenhydrAMINE HCL 25 MG CAPSULE (FP) PO ONE ×2 (22:00)
[2017-02-17 22:59] LABS: PLATELET ESTIMATE DECREASED
[2017-02-18] MEDS ORDERED: PT OWN MED DRAWER 7, Y5N ONE (09:34)
[2017-02-18] MEDS: oxyCODONE HCL 5 MG TABLET PO PRN ×3 (09:35→23:45)
[2017-02-18] MEDS: LOSARTAN POTASSIUM 50 MG TABLET (FP) PO SCH (09:36)
[2017-02-18] MEDS: HYDROCHLOROTHIAZIDE 12.5 MG CAPSULE (FP) PO SCH (09:36)
[2017-02-18] MEDS: METOPROLOL SUCCINATE 50 MG TAB.SR.24H (FP) PO SCH ×2 (09:37→21:51)
--- NOTE | 2017-02-18 12:04 | PN ---
Progress Note (short form) - Note Progress Note: pt seen/examined comfortable. says urine vega at time . no fever/ chills. overall better Vital Signs Temp 98.1 F 02/18/17 08:35 Pulse 72 02/18/17 08:35 Resp 18 02/18/17 08:35 BP 170/91 02/18/17 08:35 Pulse Ox 98 02/18/17 04:00 Intake & Output 02/17/17 02/18/17 02/18/17 23:59 11:59 23:59 Intake Total 9360 350 Output Total 71499 3000 Balance -5940 -2650 Intake: Oral 360 350 CBI Intake 9000 Output: Urine 15273 3000 Stewart 78017 3000 Other: Voiding Method Indwelling Catheter Indwelling Catheter Bowel Movement No Active Medications Docusate Sodium (Colace -) 100 mg PO BID PRN PRN Reason: CONSTIPATION Last Admin: 02/17/17 12:33 Dose: 100 mg Hydrochlorothiazide (Hctz -) 12.5 mg PO DAILY [facility] Last Admin: 02/18/17 09:36 Dose: 12.5 mg Losartan Potassium (Cozaar -) 50 mg PO DAILY [facility] Last Admin: 02/18/17 09:36 Dose: 50 mg Metoprolol Succinate (Toprol Xl -) 50 mg PO BID [facility] Last Admin: 02/18/17 09:37 Dose: 50 mg Ondansetron HCl (Zofran Injection) 4 mg IVPUSH Q6H PRN PRN Reason: NAUSEA Oxycodone HCl (Roxicodone -) 5 mg PO Q4H PRN PRN Reason: PAIN Last Admin: 02/18/17 09:35 Dose: 5 mg CBC, BMP 02/17/17 19:05 02/17/17 08:00 Microbiology 02/16/17 02:00 Urine Culture - Final Urine - Urine Stewart NO GROWTH OBTAINED Physical Alert / awake. cvs-s1s2 lungs-clear abd- soft, nt, nd stewart, CBI no edema. a/p Hematuria status post cysto and bladder neck biopsy and TUVP-02/14 HTN -Continue stewart, CBI -Urology to follow -Irrigate Stewart PRN -BP - monitor DVT- ppx- early ambulation pathology - ve for malignancy will start on emperic abx Problem List - Problems (1) Complication of Stewart catheter Code(s): T83.9XXA - UNSP COMPLICATION OF GENITOURINARY PROSTH DEV/GRFT, INIT (2) Hematuria Code(s): R31.9 - HEMATURIA, UNSPECIFIED (3) Acute urinary retention Code(s): R33.8 - OTHER RETENTION OF URINE (4) BPH (benign prostatic hyperplasia) Code(s): N40.0 - BENIGN PROSTATIC HYPERPLASIA WITHOUT LOWER URINRY TRACT SYMP (5) HTN (hypertension) Code(s): I10 - ESSENTIAL (PRIMARY) HYPERTENSION (6) S/P TURP Code(s): Z90.79 - ACQUIRED ABSENCE OF OTHER GENITAL ORGAN(S)
[2017-02-18] MEDS: LEVOFLOXACIN 500 MG IVPB 500 MG/100 ML BAG IVPB SCH (13:26)
[2017-02-19] MEDS ORDERED: PT OWN MED DRAWER 7, Y5N ONE (09:49)
[2017-02-19] MEDS: LOSARTAN POTASSIUM 50 MG TABLET (FP) PO SCH (09:51)
[2017-02-19] MEDS: HYDROCHLOROTHIAZIDE 12.5 MG CAPSULE (FP) PO SCH (09:51)
[2017-02-19] MEDS: METOPROLOL SUCCINATE 50 MG TAB.SR.24H (FP) PO SCH ×2 (09:52→21:10)
[2017-02-19] MEDS: LEVOFLOXACIN 500 MG IVPB 500 MG/100 ML BAG IVPB SCH (09:52)
--- NOTE | 2017-02-19 12:15 | PN ---
Progress Note (short form) - Note Progress Note: pt seen/examined issues with cbi today---being flushed. Vital Signs Temp 97.9 F 02/19/17 06:00 Pulse 77 02/19/17 06:00 Resp 16 02/19/17 06:00 BP 153/85 02/19/17 06:00 Pulse Ox 98 02/18/17 20:00 Intake & Output 02/18/17 02/19/17 02/19/17 23:59 11:59 23:59 Intake Total 6500 8000 Output Total 5500 52717 1999 Balance 1000 -3300 -2000 Intake: IVPB 100 Oral 400 CBI Intake 6000 8000 Output: Urine 5500 08722 2000 Stewart 5500 35279 2000 Other: Voiding Method Indwelling Catheter Toilet Active Medications Docusate Sodium (Colace -) 100 mg PO BID PRN PRN Reason: CONSTIPATION Last Admin: 02/17/17 12:33 Dose: 100 mg Hydrochlorothiazide (Hctz -) 12.5 mg PO DAILY [facility] Last Admin: 02/19/17 09:51 Dose: 12.5 mg Levofloxacin (Levaquin 500 Mg Premixed Ivpb -) 500 mg in 100 mls @ 100 mls/hr IVPB DAILY [facility] Last Admin: 02/19/17 09:52 Dose: 100 mls/hr Losartan Potassium (Cozaar -) 50 mg PO DAILY [facility] Last Admin: 02/19/17 09:51 Dose: 50 mg Metoprolol Succinate (Toprol Xl -) 50 mg PO BID [facility] Last Admin: 02/19/17 09:52 Dose: 50 mg Ondansetron HCl (Zofran Injection) 4 mg IVPUSH Q6H PRN PRN Reason: NAUSEA Oxycodone HCl (Roxicodone -) 5 mg PO Q4H PRN PRN Reason: PAIN Last Admin: 02/18/17 23:45 Dose: 5 mg Physical Alert / awake.-- in discomfort cvs-s1s2 lungs-clear abd- soft, stewart, CBI no edema. a/p Hematuria status post cysto and bladder neck biopsy and TUVP-02/14 HTN -CBI Issues -Urology called -- awaiting call -- - abx - f/u labs also been ordered - pending abx will follow Problem List - Problems (1) Complication of Stewart catheter Code(s): T83.9XXA - UNSP COMPLICATION OF GENITOURINARY PROSTH DEV/GRFT, INIT (2) Hematuria Code(s): R31.9 - HEMATURIA, UNSPECIFIED (3) Acute urinary retention Code(s): R33.8 - OTHER RETENTION OF URINE (4) BPH (benign prostatic hyperplasia) Code(s): N40.0 - BENIGN PROSTATIC HYPERPLASIA WITHOUT LOWER URINRY TRACT SYMP (5) HTN (hypertension) Code(s): I10 - ESSENTIAL (PRIMARY) HYPERTENSION (6) S/P TURP Code(s): Z90.79 - ACQUIRED ABSENCE OF OTHER GENITAL ORGAN(S)
[2017-02-19 12:28] LABS: BASO % 0.6 % (0-2.0); EOS % 3.9 % (0-4.5); HEMATOCRIT 43.1 % (35.4-49); HEMOGLOBIN 13.9 GM/dL (11.7-16.9); LYMPH % 18.6 % (8-40); MCH 28.1 pg (25.7-33.7); MCHC 32.1 g/dl (32.0-35.9); MEAN CELL VOLUME 87.6 fl (80-96); MEAN PLT VOLUME 9.6 fl (7.5-11.1); MONO % 10.5 % (3.8-10.2); NEUT % 66.4 % (42.8-82.8); PLATELET COUNT 171 K/MM3 (134-434); RBC 4.92 M/mm3 (4.00-5.60); RDW 14.8 % (11.9-15.9); WHITE BLOOD COUNT 13.1 K/mm3 (4.0-10.0)
[2017-02-19 12:52] LABS: ALBUMIN 3.4 g/dl (3.4-5.0); ALK PHOS 93 U/L (45-117); ANION GAP 10 (8-16); BILIRUBIN,TOTAL 0.6 mg/dL (0.2-1.0); BLOOD UREA NITROGEN 15 mg/dL (7-18); CALCIUM 9.1 mg/dL (8.5-10.1); CHLORIDE 102 mmol/L (98-107); CO2 27 mmol/L (21-32); GLUCOSE,RANDOM 96 mg/dL (74-106); POTASSIUM 3.9 mmol/L (3.5-5.1); SGOT/AST 49 U/L (15-37); SGPT/ALT 73 U/L (12-78); SODIUM 139 mmol/L (136-145); TOT PROT 6.5 g/dl (6.4-8.2)
[2017-02-19] MEDS: DOCUSATE SODIUM 100 MG CAPSULE (FP) PO PRN (14:16)
--- NOTE | 2017-02-19 16:04 | PN ---
Progress Note (short form) - Note Progress Note: 56M s/p cysto w bx last week. presents w gross hematuria, pt was examined monday afternoon, Stewart was aptent and urine was clear. as per nurses, pt developed gross hematuria mon pm and monday all day and develops bouts of clot retention. presently pt with supra-pubic pain, stewart irrigated vigorously w normal saline (approx 100cc of cltos removed). presently stewart patent and clear urine. Stewart stabilized to leg w abdiaziz catheter jones. CBI running slowly. output is clear and pt encouraged to increase PO fluids. willl give ditropan xl 10mg po daily for bladder spasms.
[2017-02-19] MEDS: oxyCODONE HCL 5 MG TABLET PO PRN (21:10)
[2017-02-19] MEDS: OXYBUTYNIN CHLORIDE 5 MG TABLET PO SCH (21:10)
[2017-02-20] MEDS: oxyCODONE HCL 5 MG TABLET PO PRN ×2 (03:56→22:19)
[2017-02-20] MEDS: OXYBUTYNIN CHLORIDE 5 MG TABLET PO SCH ×3 (06:41→21:00)
[2017-02-20] MEDS: LEVOFLOXACIN 500 MG IVPB 500 MG/100 ML BAG IVPB SCH (10:41)
[2017-02-20] MEDS: LOSARTAN POTASSIUM 50 MG TABLET (FP) PO SCH (10:42)
[2017-02-20] MEDS: METOPROLOL SUCCINATE 50 MG TAB.SR.24H (FP) PO SCH ×2 (10:42→21:00)
[2017-02-20] MEDS: HYDROCHLOROTHIAZIDE 12.5 MG CAPSULE (FP) PO SCH (10:42)
--- NOTE | 2017-02-20 11:25 | PN ---
Progress Note (short form) - Note Progress Note: pt seen/examined urology f/u noted flushed cbi again last night and today. passed clots again this morning pt comfortable. urine - bloody denies cp/ sob. denies abd pain Vital Signs Temp 98.7 F 02/20/17 05:00 Pulse 58 L 02/20/17 05:00 Resp 20 02/20/17 05:00 BP 156/82 02/20/17 05:00 Pulse Ox 94 L 02/20/17 04:00 Intake & Output 02/19/17 02/19/17 02/20/17 11:59 23:59 11:59 Intake Total 8000 63207 59368 Output Total 29205 62341 9700 Balance -3300 2200 300 Intake: Oral 800 CBI Intake 8000 67316 29700 Output: Urine 64174 04577 9700 Stewart 87737 60789 9700 Other: Voiding Method Toilet Indwelling Catheter Indwelling Catheter Bowel Movement Yes No Active Medications Docusate Sodium (Colace -) 100 mg PO BID PRN PRN Reason: CONSTIPATION Last Admin: 02/19/17 14:16 Dose: 100 mg Hydrochlorothiazide (Hctz -) 12.5 mg PO DAILY [facility] Last Admin: 02/20/17 10:42 Dose: 12.5 mg Levofloxacin (Levaquin 500 Mg Premixed Ivpb -) 500 mg in 100 mls @ 100 mls/hr IVPB DAILY [facility] Last Admin: 02/20/17 10:41 Dose: 100 mls/hr Losartan Potassium (Cozaar -) 50 mg PO DAILY [facility] Last Admin: 02/20/17 10:42 Dose: 50 mg Metoprolol Succinate (Toprol Xl -) 50 mg PO BID [facility] Last Admin: 02/20/17 10:42 Dose: 50 mg Ondansetron HCl (Zofran Injection) 4 mg IVPUSH Q6H PRN PRN Reason: NAUSEA Oxybutynin Chloride (Ditropan -) 5 mg PO TID [facility] Last Admin: 02/20/17 06:41 Dose: 5 mg Oxycodone HCl (Roxicodone -) 5 mg PO Q4H PRN PRN Reason: PAIN Last Admin: 02/20/17 03:56 Dose: 5 mg CBC, BMP 02/19/17 12:20 02/19/17 12:20 Physical Alert / awake.-- comfortable. lungs-clear abd- soft, stewart, CBI no edema. a/p Hematuria status post cysto and bladder neck biopsy and TUVP-02/14 HTN -CBI - continue -Urology on case - abx - f/u labs will follow Problem List - Problems (1) Complication of Stewart catheter Code(s): T83.9XXA - UNSP COMPLICATION OF GENITOURINARY PROSTH DEV/GRFT, INIT (2) Hematuria Code(s): R31.9 - HEMATURIA, UNSPECIFIED (3) Acute urinary retention Code(s): R33.8 - OTHER RETENTION OF URINE (4) BPH (benign prostatic hyperplasia) Code(s): N40.0 - BENIGN PROSTATIC HYPERPLASIA WITHOUT LOWER URINRY TRACT SYMP (5) HTN (hypertension) Code(s): I10 - ESSENTIAL (PRIMARY) HYPERTENSION (6) S/P TURP Code(s): Z90.79 - ACQUIRED ABSENCE OF OTHER GENITAL ORGAN(S)
[2017-02-21] MEDS: oxyCODONE HCL 5 MG TABLET PO PRN ×4 (03:29→22:52)
[2017-02-21] MEDS: OXYBUTYNIN CHLORIDE 5 MG TABLET PO SCH ×3 (06:24→21:23)
[2017-02-21 08:24] LABS: HEMATOCRIT 37.1 % (35.4-49); MCH 28.4 pg (25.7-33.7); MCHC 32.3 g/dl (32.0-35.9); MEAN CELL VOLUME 88.1 fl (80-96); MEAN PLT VOLUME 8.6 fl (7.5-11.1); RBC 4.21 M/mm3 (4.00-5.60); RDW 14.7 % (11.9-15.9)
[2017-02-21 08:41] LABS: ALBUMIN 2.9 g/dl (3.4-5.0); ANION GAP 9 (8-16); BLOOD UREA NITROGEN 15 mg/dL (7-18); CALCIUM 8.2 mg/dL (8.5-10.1); CHLORIDE 105 mmol/L (98-107); CO2 27 mmol/L (21-32); GLUCOSE,RANDOM 105 mg/dL (74-106); POTASSIUM 3.8 mmol/L (3.5-5.1); SODIUM 141 mmol/L (136-145)
[2017-02-21 08:45] LABS: ALK PHOS 83 U/L (45-117); BILIRUBIN,TOTAL 0.7 mg/dL (0.2-1.0); CREATININE 0.9 mg/dL (0.7-1.3); SGOT/AST 33 U/L (15-37); SGPT/ALT 52 U/L (12-78); TOT PROT 5.8 g/dl (6.4-8.2)
[2017-02-21] MEDS: LEVOFLOXACIN 500 MG IVPB 500 MG/100 ML BAG IVPB SCH (09:13)
[2017-02-21] MEDS: METOPROLOL SUCCINATE 50 MG TAB.SR.24H (FP) PO SCH ×2 (09:13→21:23)
[2017-02-21] MEDS: HYDROCHLOROTHIAZIDE 12.5 MG CAPSULE (FP) PO SCH (09:13)
[2017-02-21] MEDS: LOSARTAN POTASSIUM 50 MG TABLET (FP) PO SCH (09:13)
--- NOTE | 2017-02-21 09:36 | PN ---
Progress Note (short form) - Note Progress Note: comfortable no pain. continue to pass clots Vital Signs Temp 98.1 F 02/21/17 05:00 Pulse 58 L 02/21/17 05:00 Resp 18 02/21/17 05:00 BP 136/72 02/21/17 05:00 Pulse Ox 98 02/20/17 20:00 Intake & Output 02/20/17 02/20/17 02/21/17 11:59 23:59 11:59 Intake Total 80386 4630 0 Output Total 09749 10588 66004 Balance 380 -32949 -08652 Intake: IV 0 saline lock 0 IVPB 100 0 Oral 380 630 CBI Intake 69792 4000 Output: Urine 10818 32872 94315 Stewart 02648 97080 13594 Void 0 Other: Voiding Method Indwelling Catheter Indwelling Catheter Bowel Movement No Yes # Bowel Movements 1 1 Active Medications Docusate Sodium (Colace -) 100 mg PO BID PRN PRN Reason: CONSTIPATION Last Admin: 02/19/17 14:16 Dose: 100 mg Hydrochlorothiazide (Hctz -) 12.5 mg PO DAILY [facility] Last Admin: 02/21/17 09:13 Dose: 12.5 mg Levofloxacin (Levaquin 500 Mg Premixed Ivpb -) 500 mg in 100 mls @ 100 mls/hr IVPB DAILY [facility] Last Admin: 02/21/17 09:13 Dose: 100 mls/hr Losartan Potassium (Cozaar -) 50 mg PO DAILY [facility] Last Admin: 02/21/17 09:13 Dose: 50 mg Metoprolol Succinate (Toprol Xl -) 50 mg PO BID [facility] Last Admin: 02/21/17 09:13 Dose: 50 mg Ondansetron HCl (Zofran Injection) 4 mg IVPUSH Q6H PRN PRN Reason: NAUSEA Oxybutynin Chloride (Ditropan -) 5 mg PO TID [facility] Last Admin: 02/21/17 06:24 Dose: 5 mg Oxycodone HCl (Roxicodone -) 5 mg PO Q4H PRN PRN Reason: PAIN Last Admin: 02/21/17 03:29 Dose: 5 mg CBC, BMP 02/21/17 06:35 02/21/17 06:35 Physical Alert / awake.-- comfortable. lungs-clear abd- soft, stewart, CBI no edema. a/p Hematuria status post cysto and bladder neck biopsy and TUVP-02/14 HTN -CBI - continue -Urology on case - abx -discussed with Dr. huber also today will follow Problem List - Problems (1) Complication of Stewart catheter Code(s): T83.9XXA - UNSP COMPLICATION OF GENITOURINARY PROSTH DEV/GRFT, INIT (2) Hematuria Code(s): R31.9 - HEMATURIA, UNSPECIFIED (3) Acute urinary retention Code(s): R33.8 - OTHER RETENTION OF URINE (4) BPH (benign prostatic hyperplasia) Code(s): N40.0 - BENIGN PROSTATIC HYPERPLASIA WITHOUT LOWER URINRY TRACT SYMP (5) HTN (hypertension) Code(s): I10 - ESSENTIAL (PRIMARY) HYPERTENSION (6) S/P TURP Code(s): Z90.79 - ACQUIRED ABSENCE OF OTHER GENITAL ORGAN(S)
[2017-02-21 12:23] LABS: ACANTHOCYTES 0; ANISOCYTOSIS 0; HELMET CELLS 0; HOWELL-JOLLY BODIES 0; MACROCYTOSIS 0; OVALOCYTE 0; SICKELED CELLS 0; TARGET CELLS 0; TEAR DROP CELLS 0; TOXIC GRANULATION 0
[2017-02-21 13:01] LABS: PLATELET ESTIMATE DECREASED; WHITE BLOOD COUNT 11.4 K/mm3 (4.0-10.0)
[2017-02-22] MEDS: OXYBUTYNIN CHLORIDE 5 MG TABLET PO SCH ×3 (06:21→21:22)
[2017-02-22] MEDS: oxyCODONE HCL 5 MG TABLET PO PRN ×2 (06:21→21:32)
--- NOTE | 2017-02-22 09:34 | PN ---
Progress Note, Physician History of Present Illness: comfortable passed lot of clots again today denies cp/ sob/abd pain alert/ awake - Current Medication List Current Medications: Active Medications Docusate Sodium (Colace -) 100 mg PO BID PRN PRN Reason: CONSTIPATION Last Admin: 02/19/17 14:16 Dose: 100 mg Hydrochlorothiazide (Hctz -) 12.5 mg PO DAILY [facility] Last Admin: 02/21/17 09:13 Dose: 12.5 mg Levofloxacin (Levaquin 500 Mg Premixed Ivpb -) 500 mg in 100 mls @ 100 mls/hr IVPB DAILY [facility] Last Admin: 02/21/17 09:13 Dose: 100 mls/hr Losartan Potassium (Cozaar -) 50 mg PO DAILY [facility] Last Admin: 02/21/17 09:13 Dose: 50 mg Metoprolol Succinate (Toprol Xl -) 50 mg PO BID [facility] Last Admin: 02/21/17 21:23 Dose: 50 mg Ondansetron HCl (Zofran Injection) 4 mg IVPUSH Q6H PRN PRN Reason: NAUSEA Oxybutynin Chloride (Ditropan -) 5 mg PO TID [facility] Last Admin: 02/22/17 06:21 Dose: 5 mg Oxycodone HCl (Roxicodone -) 5 mg PO Q4H PRN PRN Reason: PAIN Last Admin: 02/22/17 06:21 Dose: 5 mg - Objective Vital Signs: Vital Signs Temperature 98.6 F 02/22/17 06:00 Pulse Rate 62 02/22/17 06:00 Respiratory Rate 20 02/22/17 06:00 Blood Pressure 143/87 02/22/17 06:00 O2 Sat by Pulse Oximetry (%) 95 02/21/17 21:00 Constitutional: Yes: No Distress, Calm Eyes: Yes: Conjunctiva Clear Neck: Yes: Supple Cardiovascular: Yes: Regular Rate and Rhythm Respiratory: Yes: CTA Bilaterally Gastrointestinal: Yes: Normal Bowel Sounds, Soft Genitourinary: Yes: Other (cbi) Edema: No Peripheral Pulses WNL: Yes Neurological: Yes: Alert Psychiatric: Yes: Alert Labs: CBC, BMP 02/21/17 06:35 02/21/17 06:35 INR, PTT INR 1.07 (0.82-1.09) 02/16/17 00:37 Problem List - Problems (1) Complication of Tomlinson catheter Code(s): T83.9XXA - UNSP COMPLICATION OF GENITOURINARY PROSTH DEV/GRFT, INIT (2) Hematuria Code(s): R31.9 - HEMATURIA, UNSPECIFIED (3) Acute urinary retention Code(s): R33.8 - OTHER RETENTION OF URINE (4) BPH (benign prostatic hyperplasia) Code(s): N40.0 - BENIGN PROSTATIC HYPERPLASIA WITHOUT LOWER URINRY TRACT SYMP (5) HTN (hypertension) Code(s): I10 - ESSENTIAL (PRIMARY) HYPERTENSION (6) S/P TURP Code(s): Z90.79 - ACQUIRED ABSENCE OF OTHER GENITAL ORGAN(S) Assessment/Plan stable scheduled for cysto again today. continue present care abx f/u labs . will follow discussed with nursing staff also.
[2017-02-22] MEDS: METOPROLOL SUCCINATE 50 MG TAB.SR.24H (FP) PO SCH ×2 (10:13→21:23)
[2017-02-22] MEDS: LOSARTAN POTASSIUM 50 MG TABLET (FP) PO SCH (10:14)
[2017-02-22] MEDS: HYDROCHLOROTHIAZIDE 12.5 MG CAPSULE (FP) PO SCH (10:14)
[2017-02-22] MEDS: LEVOFLOXACIN 500 MG IVPB 500 MG/100 ML BAG IVPB SCH (10:14)
[2017-02-22] MEDS ORDERED: ONDANSETRON 4 MG/2 ML VIAL IVPUSH PRN ×2 (12:43→13:31)
[2017-02-22] MEDS ORDERED: PROMETHAZINE HCL 25 MG/1 ML VIAL IVPUSH PRN ×2 (12:43→13:31)
[2017-02-22] MEDS ORDERED: LACTATED RINGERS SOLUTION 1,000 ML IV SCH (12:45)
[2017-02-22] MEDS ORDERED: DEXTROSE 5%-0.45% SALINE 1,000 ML IV SCH (13:15)
--- NOTE | 2017-02-22 13:15 | OP ---
Operative Note - Note: Operative Date: 02/22/17 Pre-Operative Diagnosis: Hematuria and clot retention Operation: Cysto, evacuation of clots fulgauration and continous irrigation Findings: Fe clots in the bladder Large residula prostate Post-Operative Diagnosis: Same as Pre-op Surgeon: Sylvia Queen Anesthesia: General
[2017-02-22 13:43] LABS: HEMATOCRIT 39.1 % (35.4-49); HEMOGLOBIN 12.5 GM/dL (11.7-16.9); MCH 28.5 pg (25.7-33.7); MEAN PLT VOLUME 8.8 fl (7.5-11.1); RBC 4.39 M/mm3 (4.00-5.60); RDW 14.6 % (11.9-15.9); WHITE BLOOD COUNT 12.2 K/mm3 (4.0-10.0)
[2017-02-22 14:08] LABS: ALBUMIN 3.2 g/dl (3.4-5.0); ALK PHOS 86 U/L (45-117); ANION GAP 8 (8-16); BILIRUBIN,TOTAL 0.6 mg/dL (0.2-1.0); BLOOD UREA NITROGEN 18 mg/dL (7-18); CALCIUM 8.5 mg/dL (8.5-10.1); CHLORIDE 103 mmol/L (98-107); CO2 29 mmol/L (21-32); CREATININE 1.1 mg/dL (0.7-1.3); GLUCOSE,RANDOM 104 mg/dL (74-106); POTASSIUM 4.1 mmol/L (3.5-5.1); SGOT/AST 40 U/L (15-37); SGPT/ALT 53 U/L (12-78); SODIUM 140 mmol/L (136-145); TOT PROT 6.2 g/dl (6.4-8.2)
[2017-02-22] MEDS ORDERED: methylPREDNISolone NA SUCC 125 MG/2 ML VIAL ONE (15:29)
--- NOTE | 2017-02-22 15:56 | RAPID ---
Physical Examination Vital Signs: Vital Signs Temperature 98.3 F 02/22/17 15:30 Pulse Rate 70 02/22/17 15:30 Respiratory Rate 16 02/22/17 15:30 Blood Pressure 128/70 02/22/17 15:30 O2 Sat by Pulse Oximetry (%) 98 02/22/17 14:20 Findings/Remarks: [employer] EPIDEMIOLOGIST called overhead this afternoon Pt recently returned from cystoscopy for reason of evacuation of clots, fulgauration and continous irrigation 2/2 to hematuria. No complications noted during procedure. Pt noted having enlargement of lips and edema of tongue. Pt denies SOB, CP/discomfort, palpitations, visual disturbances. PE: VS: HR 74 BP 176/109, 172/104, SpO2 96% 2LNC Gen: NAD, awake, alert, lying in bed, speaking fluently HEENT: EOMI, ASAEL, sclera anicteric, perioral edema noted with lower > upper lip, tongue edema noted slightly erythematous and beefy in character, posterior oropharynx obscured by tongue edema. No stridor heard or upon auscultation Lungs: CTA bilaterally, no wheezes rhonchi or rales. No accessor muscle use. On 2LNC with saturation of 96% Cards: RRR, S1 and S2 present without any appreciable murmurs ABD: soft, NT/ND, no guarding EXT: 2+ DP pulses A/P Allergic rxn s/p operative anesthesia most likely --Benadryl 50mg IVP --Medrol 125mg IVP --Pepcid 20 IVP --Continue O2 monitoring --HTN due to anxiety --Monitor for signs of worsening edema --Contact primary provider so he is aware Case discussed with Dr. Mtz present Christopher Mendoza DO - Internal Medicine PGY-1 Labs: CBC, BMP 02/22/17 13:10 02/22/17 13:10
[2017-02-22] MEDS ORDERED: FAMOTIDINE IV 20 MG/12 ML VIAL IVPUSH ONE (16:30)
[2017-02-22] MEDS ORDERED: methylPREDNISolone NA SUCC 125 MG/2 ML VIAL IVPUSH ONE (16:30)
[2017-02-23] MEDS: OXYBUTYNIN CHLORIDE 5 MG TABLET PO SCH ×3 (06:25→21:12)
[2017-02-23 08:02] LABS: HEMATOCRIT 35.9 % (35.4-49); HEMOGLOBIN 11.6 GM/dL (11.7-16.9); MCH 28.5 pg (25.7-33.7); MCHC 32.3 g/dl (32.0-35.9); MEAN CELL VOLUME 88.2 fl (80-96); MEAN PLT VOLUME 10.1 fl (7.5-11.1); RBC 4.06 M/mm3 (4.00-5.60); RDW 14.6 % (11.9-15.9); WHITE BLOOD COUNT 12.7 K/mm3 (4.0-10.0)
[2017-02-23 08:30] LABS: CHLORIDE 104 mmol/L (98-107); POTASSIUM 4.2 mmol/L (3.5-5.1); SODIUM 139 mmol/L (136-145)
[2017-02-23 08:39] LABS: ALBUMIN 2.9 g/dl (3.4-5.0); ALK PHOS 84 U/L (45-117); ANION GAP 8 (8-16); BILIRUBIN,TOTAL 0.5 mg/dL (0.2-1.0); BLOOD UREA NITROGEN 22 mg/dL (7-18); CALCIUM 8.6 mg/dL (8.5-10.1); CO2 27 mmol/L (21-32); CREATININE 1.1 mg/dL (0.7-1.3); GLUCOSE,RANDOM 227 mg/dL (74-106); SGOT/AST 29 U/L (15-37); SGPT/ALT 49 U/L (12-78)
[2017-02-23] MEDS: HYDROCHLOROTHIAZIDE 12.5 MG CAPSULE (FP) PO SCH (09:16)
[2017-02-23] MEDS: METOPROLOL SUCCINATE 50 MG TAB.SR.24H (FP) PO SCH ×2 (09:16→21:12)
[2017-02-23] MEDS: LOSARTAN POTASSIUM 50 MG TABLET (FP) PO SCH (09:16)
[2017-02-23] MEDS: FUROSEMIDE 40 MG TABLET (FP) PO SCH (09:16)
[2017-02-23] MEDS: ASPIRIN 325 MG TABLET PO SCH (09:16)
[2017-02-23] MEDS: LEVOFLOXACIN 500 MG TABLET (FP) PO SCH (09:16)
[2017-02-23] MEDS: amLODIPine BESYLATE 10 MG TABLET (FP) PO SCH (09:16)
--- NOTE | 2017-02-23 09:41 | PN ---
Progress Note (short form) - Note Progress Note: comfortable events noted had reaction to anesthesia feels well now denies pain s/p cysto yesterday Vital Signs Temp 98.4 F 02/23/17 09:25 Pulse 98 H 02/23/17 09:25 Resp 18 02/23/17 09:25 BP 149/85 02/23/17 09:25 Pulse Ox 96 02/22/17 21:00 Intake & Output 02/22/17 02/22/17 02/23/17 11:59 23:59 11:59 Intake Total 52975 86499 7250 Output Total 8000 9850 57751 Balance 6900 8825 -4750 Intake: IV 900 975 D5-1/2Ns - 1,000 ml @ 100 775 mls/hr IV ASDIR [facility] Rx#: [id number] IVPB 100 Oral 250 CBI Intake 32842 56056 7000 Output: Urine 7900 850 19038 Tomlinson 7900 850 34463 Void 0 Estimated Blood Loss 100 Other 9000 Other: Voiding Method Indwelling Catheter Indwelling Catheter Indwelling Catheter Bowel Movement No No No Active Medications Amlodipine Besylate (Norvasc -) 10 mg PO DAILY [facility] Last Admin: 02/23/17 09:16 Dose: 10 mg Aspirin (Asa -) 325 mg PO DAILY [facility] Last Admin: 02/23/17 09:16 Dose: 325 mg Docusate Sodium (Colace -) 100 mg PO BID PRN PRN Reason: CONSTIPATION Last Admin: 02/19/17 14:16 Dose: 100 mg Fentanyl (Sublimaze Injection -) 50 mcg IVPUSH [id number] PRN PRN Reason: PAIN Furosemide (Lasix -) 40 mg PO DAILY [facility] Last Admin: 02/23/17 09:16 Dose: 40 mg Hydrochlorothiazide (Hctz -) 12.5 mg PO DAILY [facility] Last Admin: 02/23/17 09:16 Dose: 12.5 mg Levofloxacin (Levaquin -) 500 mg PO DAILY [facility] Last Admin: 02/23/17 09:16 Dose: 500 mg Losartan Potassium (Cozaar -) 50 mg PO DAILY [facility] Last Admin: 02/23/17 09:16 Dose: 50 mg Metoprolol Succinate (Toprol Xl -) 50 mg PO BID [facility] Last Admin: 02/23/17 09:16 Dose: 50 mg Ondansetron HCl (Zofran Injection) 4 mg IVPUSH Q6H PRN PRN Reason: NAUSEA Ondansetron HCl (Zofran Injection) 4 mg IVPUSH Q6H PRN PRN Reason: NAUSEA AND/OR VOMITING Oxybutynin Chloride (Ditropan -) 5 mg PO TID [facility] Last Admin: 02/23/17 06:25 Dose: 5 mg Oxycodone HCl (Roxicodone -) 5 mg PO Q4H PRN PRN Reason: PAIN Last Admin: 02/22/17 21:32 Dose: 5 mg Promethazine HCl (Phenergan Injection -) 12.5 mg IVPUSH Q6H PRN PRN Reason: NAUSEA-FOR RESCUE AFTER 15 MIN CBC, BMP 02/23/17 06:30 02/23/17 06:24 Physical Examination Constitutional: Yes: No Distress, Comfortable Eyes: Yes: Conjunctiva Clear Neck: Yes: Supple Cardiovascular: Yes: Regular Rate and Rhythm Respiratory: Yes: CTA Bilaterally Gastrointestinal: Yes: Normal Bowel Sounds, Soft Genitourinary: Yes: Other (cbi) Edema: No Peripheral Pulses WNL: Yes Neurological: Yes: Alert Psychiatric: Yes: Alert a/p s/p repeat cysto stable contiue cbi monitor bp f/u labs will follow Problem List - Problems (1) Complication of Tomlinson catheter Code(s): T83.9XXA - UNSP COMPLICATION OF GENITOURINARY PROSTH DEV/GRFT, INIT (2) Hematuria Code(s): R31.9 - HEMATURIA, UNSPECIFIED (3) Acute urinary retention Code(s): R33.8 - OTHER RETENTION OF URINE (4) BPH (benign prostatic hyperplasia) Code(s): N40.0 - BENIGN PROSTATIC HYPERPLASIA WITHOUT LOWER URINRY TRACT SYMP (5) HTN (hypertension) Code(s): I10 - ESSENTIAL (PRIMARY) HYPERTENSION (6) S/P TURP Code(s): Z90.79 - ACQUIRED ABSENCE OF OTHER GENITAL ORGAN(S)
--- NOTE | 2017-02-23 10:41 | PATH ---
Surgical Pathology Report Patient Name: LYNN HOLLY Med. Rec. #: [id number] /Age/Gender: 1960 (Age: 56) / M Account: [id number] Location: [facility] MED/SURG Taken: 02/22/2017 Received: 02/22/2017 Reported: 02/23/2017 Physicians: Alejandro Jolly M.D. Specimen(s) Received BLADDER NECK TISSUE Clinical History Hematuria Final Diagnosis BLADDER NECK, TISSUE, BIOPSY: ACUTE BENIGN POLYPOID CYSTITIS. Comment: Prior material is noted. Electronically Signed Angelic Kaur M.D. Gross Description Received in formalin, labeled "bladder neck tissue" are 4 cruz-brown soft tissue fragments ranging from 0.2-0.9 cm. in greatest dimension. The specimens are submitted in toto in one cassette. /02/22/201702/22/2017
--- NOTE | 2017-02-23 10:46 | PN ---
Progress Note (short form) - Note Progress Note: POD 1 Pt. is doing well, comfortable, no discomfort. CBI return is clear. Will continue today. OOB. Force oral fluids. Progress satisfacory.
[2017-02-23] MEDS: oxyCODONE HCL 5 MG TABLET PO PRN (22:05)
[2017-02-24] MEDS: oxyCODONE HCL 5 MG TABLET PO PRN ×2 (03:37→20:17)
[2017-02-24] MEDS: OXYBUTYNIN CHLORIDE 5 MG TABLET PO SCH ×3 (06:16→22:05)
[2017-02-24 07:58] LABS: BASO % 0.5 % (0-2.0); EOS % 0.6 % (0-4.5); HEMATOCRIT 35.6 % (35.4-49); HEMOGLOBIN 11.4 GM/dL (11.7-16.9); LYMPH % 23.2 % (8-40); MCH 28.4 pg (25.7-33.7); MCHC 31.9 g/dl (32.0-35.9); MEAN PLT VOLUME 8.8 fl (7.5-11.1); MONO % 7.6 % (3.8-10.2); NEUT % 68.1 % (42.8-82.8); PLATELET COUNT 58 K/MM3 (134-434); RDW 14.6 % (11.9-15.9); WHITE BLOOD COUNT 16.8 K/mm3 (4.0-10.0)
[2017-02-24 08:32] LABS: ANION GAP 10 (8-16); BILIRUBIN,TOTAL 0.4 mg/dL (0.2-1.0); BLOOD UREA NITROGEN 23 mg/dL (7-18); CALCIUM 8.4 mg/dL (8.5-10.1); CHLORIDE 105 mmol/L (98-107); CO2 28 mmol/L (21-32); CREATININE 0.9 mg/dL (0.7-1.3); GLUCOSE,RANDOM 99 mg/dL (74-106); POTASSIUM 3.7 mmol/L (3.5-5.1); SGOT/AST 28 U/L (15-37); SGPT/ALT 44 U/L (12-78); SODIUM 143 mmol/L (136-145); TOT PROT 5.7 g/dl (6.4-8.2)
[2017-02-24 08:33] LABS: ALK PHOS 78 U/L (45-117)
[2017-02-24] MEDS: FUROSEMIDE 40 MG TABLET (FP) PO SCH (09:06)
[2017-02-24] MEDS: LOSARTAN POTASSIUM 50 MG TABLET (FP) PO SCH (09:06)
[2017-02-24] MEDS: HYDROCHLOROTHIAZIDE 12.5 MG CAPSULE (FP) PO SCH (09:07)
[2017-02-24] MEDS: amLODIPine BESYLATE 10 MG TABLET (FP) PO SCH (09:07)
[2017-02-24] MEDS: METOPROLOL SUCCINATE 50 MG TAB.SR.24H (FP) PO SCH ×2 (09:07→22:04)
[2017-02-24] MEDS: LEVOFLOXACIN 500 MG TABLET (FP) PO SCH (09:07)
[2017-02-24] MEDS: DOCUSATE SODIUM 100 MG CAPSULE (FP) PO PRN (09:07)
[2017-02-24] MEDS: ASPIRIN 325 MG TABLET PO SCH (09:07)
[2017-02-24 09:25] LABS: PLATELET ESTIMATE DECREASED
--- NOTE | 2017-02-24 12:35 | PN ---
Progress Note (short form) - Note Progress Note: Doing well. Urine appears to be clear. Will discontinue CBI. Force oral fluids. Possible discharge tomorrow with stewart. Rx given for proscar, elmiron and bactrim. For office on Monday.
--- NOTE | 2017-02-24 16:42 | PN ---
Progress Note (short form) - Note Progress Note: pt feels well denies pain cbi - d/toni urology f/u noted urine clear in bag. Vital Signs Temp 97.7 F 02/24/17 14:19 Pulse 67 02/24/17 14:19 Resp 18 02/24/17 14:19 BP 152/94 02/24/17 14:19 Pulse Ox 97 02/24/17 09:00 Intake & Output 02/23/17 02/24/17 02/24/17 23:59 11:59 23:59 Intake Total 15362 3250 750 Output Total 69258 5600 2500 Balance 61796 -2350 -1750 Intake: Oral 250 750 CBI Intake 15929 3000 Output: Urine 66368 5200 2500 Stewart 56055 5200 2500 Void 0 0 Emesis 400 Other: Voiding Method Indwelling Catheter Toilet Bowel Movement No No No Active Medications Amlodipine Besylate (Norvasc -) 10 mg PO DAILY [facility] Last Admin: 02/24/17 09:07 Dose: 10 mg Aspirin (Asa -) 325 mg PO DAILY [facility] Last Admin: 02/24/17 09:07 Dose: 325 mg Docusate Sodium (Colace -) 100 mg PO BID PRN PRN Reason: CONSTIPATION Last Admin: 02/24/17 09:07 Dose: 100 mg Fentanyl (Sublimaze Injection -) 50 mcg IVPUSH [id number] PRN PRN Reason: PAIN Furosemide (Lasix -) 40 mg PO DAILY [facility] Last Admin: 02/24/17 09:06 Dose: 40 mg Hydrochlorothiazide (Hctz -) 12.5 mg PO DAILY [facility] Last Admin: 02/24/17 09:07 Dose: 12.5 mg Levofloxacin (Levaquin -) 500 mg PO DAILY [facility] Last Admin: 02/24/17 09:07 Dose: 500 mg Losartan Potassium (Cozaar -) 50 mg PO DAILY [facility] Last Admin: 02/24/17 09:06 Dose: 50 mg Metoprolol Succinate (Toprol Xl -) 50 mg PO BID [facility] Last Admin: 02/24/17 09:07 Dose: 50 mg Ondansetron HCl (Zofran Injection) 4 mg IVPUSH Q6H PRN PRN Reason: NAUSEA Ondansetron HCl (Zofran Injection) 4 mg IVPUSH Q6H PRN PRN Reason: NAUSEA AND/OR VOMITING Oxybutynin Chloride (Ditropan -) 5 mg PO TID [facility] Last Admin: 02/24/17 13:50 Dose: 5 mg Oxycodone HCl (Roxicodone -) 5 mg PO Q4H PRN PRN Reason: PAIN Last Admin: 02/24/17 03:37 Dose: 5 mg Promethazine HCl (Phenergan Injection -) 12.5 mg IVPUSH Q6H PRN PRN Reason: NAUSEA-FOR RESCUE AFTER 15 MIN CBC, BMP 02/24/17 06:00 02/24/17 06:00 Physical Examination Constitutional: Yes: No Distress, Comfortable. Eyes: Yes: Conjunctiva Clear Neck: Yes: Supple Cardiovascular: Yes: Regular Rate and Rhythm Respiratory: Yes: CTA Bilaterally Gastrointestinal: Yes: Normal Bowel Sounds, Soft Genitourinary: Yes: Other -- stewart Edema: No Peripheral Pulses WNL: Yes Neurological: Yes: Alert Psychiatric: Yes: Alert a/p s/p repeat cysto stable stewart care monitor bp anticipate d/c tomorrow will follow Problem List - Problems (1) Complication of Stewart catheter Code(s): T83.9XXA - UNSP COMPLICATION OF GENITOURINARY PROSTH DEV/GRFT, INIT (2) Hematuria Code(s): R31.9 - HEMATURIA, UNSPECIFIED (3) Acute urinary retention Code(s): R33.8 - OTHER RETENTION OF URINE (4) BPH (benign prostatic hyperplasia) Code(s): N40.0 - BENIGN PROSTATIC HYPERPLASIA WITHOUT LOWER URINRY TRACT SYMP (5) HTN (hypertension) Code(s): I10 - ESSENTIAL (PRIMARY) HYPERTENSION (6) S/P TURP Code(s): Z90.79 - ACQUIRED ABSENCE OF OTHER GENITAL ORGAN(S)
[2017-02-24] MEDS: POLYETHYLENE GLYCOL 3350 119 GM BTL PO SCH (19:03)
[2017-02-25] MEDS: OXYBUTYNIN CHLORIDE 5 MG TABLET PO SCH ×2 (06:26→13:06)
[2017-02-25] MEDS ORDERED: PT OWN MED DRAWER 7, Y5N ONE (09:10)
[2017-02-25] MEDS: HYDROCHLOROTHIAZIDE 12.5 MG CAPSULE (FP) PO SCH (09:14)
[2017-02-25] MEDS: FUROSEMIDE 40 MG TABLET (FP) PO SCH (09:14)
[2017-02-25] MEDS: amLODIPine BESYLATE 10 MG TABLET (FP) PO SCH (09:14)
[2017-02-25] MEDS: ASPIRIN 325 MG TABLET PO SCH (09:14)
[2017-02-25] MEDS: LEVOFLOXACIN 500 MG TABLET (FP) PO SCH (09:15)
[2017-02-25] MEDS: METOPROLOL SUCCINATE 50 MG TAB.SR.24H (FP) PO SCH (09:15)
[2017-02-25] MEDS: POLYETHYLENE GLYCOL 3350 119 GM BTL PO SCH (09:15)
[2017-02-25] MEDS: LOSARTAN POTASSIUM 50 MG TABLET (FP) PO SCH (09:15)
[2017-02-25] MEDS ORDERED: LEVOFLOXACIN 500 MG TABLET (FP) PO SCH (09:54)
[2017-02-25 10:13] VITALS: PULSE 68
[2017-02-25] MEDS: oxyCODONE HCL 5 MG TABLET PO PRN (10:23)
[2017-02-25] MEDS ORDERED: NIFEdipine E.R 60 MG TABLET (UD) PO SCH (12:00)
--- NOTE | 2017-02-25 12:29 | DS ---
Physical Examination Vital Signs: Vital Signs Temperature 98.6 F 02/25/17 06:00 Pulse Rate 68 02/25/17 10:13 Respiratory Rate 18 02/25/17 06:00 Blood Pressure 161/105 02/25/17 06:00 O2 Sat by Pulse Oximetry (%) 93 L 02/25/17 10:13 Findings/Remarks: feels well no complains wants to go home urology f/u noted urine clear in blood Constitutional: Yes: No Distress, Calm Neck: Yes: Supple Cardiovascular: Yes: Regular Rate and Rhythm Respiratory: Yes: CTA Bilaterally Gastrointestinal: Yes: Soft Renal/: Yes: Silva Present Edema: No Neurological: Yes: Alert Labs: CBC, BMP 02/24/17 06:00 02/24/17 06:00 Discharge Summary Reason For Visit: HEMATURIA COMPLICATION OF SILVA CATHETER Current Active Problems Complication of Silva catheter (Acute) Hematuria (Acute) Hospital Course: HISTORY OF PRESENT ILLNESS: This is a 56 year old male with a significant past medical history of enlarged prostate who presented to the ED with hematuria in Silva bag. Pt is s/p cystoscopy, bladder biopsy and TUVP on 02/14. He was d/c home with a silva catheter in place. On 02/15 he noted no urine output in bag and abdominal discomfort. He presented to the ED. He was evaluated by urology in the ED and started on CBI which he tolerated and was DC home after irrigation. He again noted no urine output and thus presented to the ED for another visit late last night. He reports that when he got here he did have urine output but noted it to be very bloody. He reports he has been producing urine since he got here late last night. Upon exam his only complaint is a headache. ER course was notable for: (1) laci bloody urine in leg bag (2) Hgb 13.9 pt underwent cysto x [address] queen cbi was placed. biopsy - ve for malignancy +ve cystits treated with levaquin pt now has silva - urine getting clear cleared by urology for d/c labs - wbc 16 -- no fever pt given bactrim by Dr. Queen had discussed with Dr. Queen bp meds adjusted hold lasix for now- platles low-- has h/o same u/s -ve for dvt follow as out pt with hematology will hold asprin also will d/c today f/u in office next week discussed in detail with pt./ nursing staff. discharge time 40 min in examining/ documenting and coordinating care. Condition: Stable - Instructions Referrals: Duane Mcdaniel MD [Staff Physician] - - Home Medications Comprehensive Discharge Medication List: Ambulatory Orders Losartan/Hydrochlorothiazide [Losartan-Hctz 50-12.5 mg Tab] 1 each PO DAILY Metoprolol Succinate [Toprol Xl] 50 mg PO BID 02/13/17 Docusate Sodium [Colace -] 100 mg PO BID PRN capsule 02/25/17 Nifedipine ER [Procardia XL -] 60 mg PO DAILY #30 tab.er.24 02/25/17 Oxybutynin Chloride [Ditropan -] 5 mg PO TID tablet 02/25/17 Polyethylene Glycol 3350 [Miralax 119 gm Btl -] 17 gm PO DAILY bottle 02/25/17
[2017-02-25 14:08] VITALS: BP 160/82; TEMP 98.3
== END 2017-02-25 15:46 | disposition home or self-care (01) | DRG 669 ==
LOC: JER 22:55 → JERBED 02-16 03:01 → INTOOBSV 02-16 03:01 → J8W 02-16 15:48 → OBSVTOIN 02-17 14:20
PROVIDERS: ADMIT Internal Medicine; ATTEND Internal Medicine
PROC: 0T5B8ZZ Destruction of Bladder, Via Natural or Artificial Opening Endoscopic (ICD-10-PCS; 2017-02-22)
PROC: 0TBC8ZX Excision of Bladder Neck, Via Natural or Artificial Opening Endoscopic, Diagnostic (ICD-10-PCS; principal; 2017-02-22 11:00)
DX: T83.091A Other mechanical complication of indwelling urethral catheter, initial encounter (principal); N30.00 Acute cystitis without hematuria; Y83.9 Surgical procedure, unspecified as the cause of abnormal reaction of the patient, or of later complication, without mention of misadventure at the time of the procedure; R31.9 Hematuria, unspecified; R33.8 Other retention of urine; N40.0 Benign prostatic hyperplasia without lower urinary tract symptoms; I10 Essential (primary) hypertension
CPT/HCPCS: 36415; 71010-TC; 80053; 81003; 81015; 85025; 85027; 85610; 85730; 86850; 86900; 86901; 87086; 88305-TC; 93005; 93010; 93970-TC; 94760; 99284-25; G0378